=== PATIENT | male | born 1950 | race Hispanic/Latino ===

== ENCOUNTER 2018-09-19 13:20 | Observation (INO) | payer BC ==
[~2018-09-19] VITALS: Ht 167.6 cm; Wt 77.6 kg
[~2018-09-19 13:20] MED LIST: AUGMENTIN 875-1 EACH PO; AZITHROMYCIN250 MG PO; LISINOPRIL-HCT1 EACH PO; TAMIFLU75 MG PO
--- OUTSIDE RECORDS SUMMARY | 2018-09-19 13:22 | XMS REPORT ---
Author Author [facility] Address Unknown Phone Unavailable Care Team Providers Care Manager Exchange Name Role Phone MIKE TERESA Unavailable Unavailable Problems This patient has no known problems. Allergies, Adverse Reactions, Alerts This patient has no known allergies or adverse reactions. Medications This patient has no known medications. Results Test Description Test Time Test Comments Text Results Atomic Results Result Comments CHEST SINGLE (PORTABLE) [place] [address] Patient Name: ANUSHA MCGREGOR MR #: [id number] : 1950 Age/Sex: 67/M Req #: [id number] Adm Physician: MIKE TERESA MD Ordered by: LIANE MAGANA MD Report #: [id number] Location: [facility] Room/Bed: [facility] Procedure: [id number] DX/CHEST SINGLE (PORTABLE) Exam Date: Exam Time: REPORT STATUS: Signed EXAM: CHEST SINGLE (PORTABLE), AP 1 view DATE: 04/08/2017 5:00 AM Time stamp on exam: 0551 hours INDICATION: Chest pain COMPARISON: AP view of the chest 2017 FINDINGS: LINES/TUBES: None LUNGS: Bilateral vascular congestion and atelectasis. PLEURA: No effusions or pneumothorax. HEART AND MEDIASTINUM: Stable appearance. BONES AND SOFT TISSUES: No acute findings. IMPRESSION: No interval change. Signed by: Dr. Vitaliy Hess M.D. on 04/08/2017 6:42 AM Dictated By: VITALIY HESS MD 1 Transcribed By: NISHI on 04/08/17641 COPY TO: LIANE MAGANA MD CHEST SINGLE (PORTABLE) [place] [address] Patient Name: ANUSHA MCGREGOR MR #: [id number] : 1950 Age/Sex: 67/M Req #: [id number] Adm Physician: Ordered by: RICKEY CARTER SOCK IRONER Report #: [id number] Location: ER Room/Bed: Procedure: [id number] DX/CHEST SINGLE (PORTABLE) Exam Date: Exam Time: REPORT STATUS: Signed PROCEDURE: A single AP view of the chest. COMPARISON: [facility], DX, CHEST 2 VIEWS, 04/06/2017, 12:49. INDICATIONS: SOB, PNEUMONIA FINDINGS: Lines/tubes: None. Lungs: Lungs are well- inflated. Stable minimal bibasilar patchy opacities, likely reflecting atelectasis. No consolidation or pulmonary edema. Pleura: There is no pleural effusion or pneumothorax. Heart and mediastinum: Mild prominence of the cardiac silhouette, which is likely partly due to AP projection. Pulmonary vasculature is normal. Bones: No acute bony abnormality. IMPRESSION: 1. minimal by basilar atelectasis. No consolidation or effusion. Omsel Suarez M.D. Dictated by: Osmel Suarez M.D. on 2017 at 16:24 Electronically approved by: Osmel Suarez M.D. on 2017 at 16:24 Dictated By: OSMEL SUAREZ MD 23 Transcribed By: KLAUDIA on 04/07/171623 COPY TO: RICKEY CARTER NP CHEST 2 VIEWS [place] [address] Patient Name: ANUSHA MCGREGOR MR #: [id number] : 1950 Age/Sex: 66/M Req #: [id number] Adm Physician: Ordered by: MIKE TERESA MD Report #: [id number] Location: [facility] Room/Bed: Procedure: [id number] DX/CHEST 2 VIEWS Exam Date: 04/06/17 Exam Time: 1300 REPORT STATUS: Signed PROCEDURE: Frontal and lateral views of the chest. COMPARISON: None. INDICATIONS: SHORTNESS OF BREATH FINDINGS: Lines/tubes: None. Lungs: No parenchymal mass. Bibasilar airspace opacities. Pleura: There is no pleural effusion or pneumothorax. Heart and mediastinum: The heart and the mediastinum are normal. Atherosclerotic calcifications. Bones: No acute bony abnormality. Degenerative changes of the thoracic spine. IMPRESSION: Bibasilar airspace opacities may represent atelectasis or developing pneumonia. Dictated by: Farheen Chung M.D. on 04/06/2017 at 13:59 Electronically approved by: Farheen Chung M.D. on 04/06/2017 at 13:59 Dictated By: FARHEEN CHUNG MD [id number] Transcribed By: KLAUDIA on 04/06/17 1359 COPY TO: MIKE TERESA MD
[2018-09-19] MEDS ORDERED: MORPHINE SULFATE INJ 4 MG/ML INJ 1ML IV NR (13:39)
[2018-09-19] MEDS ORDERED: ONDANSETRON HCL INJ 2MG/ML 2ML 2 MG/ML VIAL IV NR (14:00)
[2018-09-19 14:04] LABS: BASOPHILS % 0.1 % (0.0-1.0); EOSINOPHILS # (AUTO) 0.3 (0.0-0.4); EOSINOPHILS % 1.9 % (0.0-6.0); HEMATOCRIT 40.7 % (38.2-49.6); HEMOGLOBIN 13.7 g/dL (14.0-18.0); LYMPHOCYTES # (AUTO) 1.9 (1.0-3.2); LYMPHOCYTES % 13.5 % (18.0-39.1); MEAN CORPUSCULAR HEMOGLOBIN 30.2 pg (28-32); MEAN CORPUSCULAR HGB CONC 33.7 g/dL (31-35); MEAN CORPUSCULAR VOLUME 89.6 fL (81-99); MONOCYTES # (AUTO) 0.8 (0.2-0.8); MONOCYTES % 5.9 % (4.4-11.3); NEUTROPHILS # (AUTO) 10.6 (2.1-6.9); NEUTROPHILS % 77.8 % (38.7-80.0); PLATELET COUNT 180 x10e3/uL (140-360); RED BLOOD COUNT 4.54 x10e6/uL (4.3-5.7)
[2018-09-19 14:13] LABS: INR 0.9; PARTIAL THROMBOPLASTIN TIME 25.3 seconds (23.8-35.5); PROTHROMBIN TIME 12.6 seconds (11.9-14.5)
[2018-09-19 14:23] LABS: ALANINE AMINOTRANSFERASE 39 IU/L (0-55); ALBUMIN 3.8 g/dL (3.5-5.0); ALBUMIN/GLOBULIN RATIO 1.2 (0.8-2.0); ALKALINE PHOSPHATASE 67 IU/L (40-150); ANION GAP 12.9 mmol/L (8-16); BLOOD UREA NITROGEN 26 mg/dL (7-26); BUN/CREATININE RATIO 24 (6-25); CALCIUM 10.1 mg/dL (8.4-10.2); CARBON DIOXIDE 21 mmol/L (22-29); CHLORIDE 110 mmol/L (98-107); CREATINE KINASE 350 IU/L (30-200); CREATININE, SERUM 1.09 mg/dL (0.72-1.25); EST GLOMERULAR FILTRATION RATE > 60 ML/MIN (60-); GLUCOSE 147 mg/dL (74-118); POTASSIUM 3.9 mmol/L (3.5-5.1); SODIUM 140 mmol/L (136-145)
--- NOTE | 2018-09-19 14:39 | Diagnostic Imaging Report ---
PELVIS X-RAY - 1 VIEW HISTORY: ^R/O FX ^Y COMPARISON: None available. FINDINGS: Bones: Internal rotation of the right femoral head, cannot exclude fracture. Left femoral head appears intact. Linear lucency within the left superior pelvic ramus concerning for acute fracture. Osseous alignment is within normal limits. Joints: The joint spaces are well-maintained. Soft tissues: The soft tissues appear unremarkable. IMPRESSION: Suboptimal evaluation of the right hip. Recommend right hip x-ray series for further evaluation and exclude fracture. Suspect a nondisplaced fracture of the left superior pubic ramus. Signed by: Dr. Missy Giordano M.D. on 09/19/2018 2:35 PM
--- NOTE | 2018-09-19 14:40 | Diagnostic Imaging Report ---
EXAMINATION: CHEST SINGLE (PORTABLE) INDICATION: ^ERMD ORDER ^Y COMPARISON: Chest radiograph 04/08/2017 FINDINGS: AP view TUBES and LINES: None. LUNGS: Lungs are well inflated. Lungs are clear. There is no evidence of pneumonia or pulmonary edema. PLEURA: No pleural effusion or pneumothorax. HEART AND MEDIASTINUM: The cardiomediastinal silhouette is unremarkable.. BONES AND SOFT TISSUES: No acute osseous lesion. Soft tissues are unremarkable. UPPER ABDOMEN: No free air under the diaphragm. IMPRESSION: No acute thoracic abnormality. Signed by: Dr. Missy Giordano M.D. on 09/19/2018 2:37 PM
[2018-09-19 14:51] LABS: CLARITY,URINE CLEAR (CLEAR); COLOR,URINE YELLOW (YELLOW)
[2018-09-19 14:52] LABS: BILIRUBIN,URINE NEGATIVE (NEGATIVE); KETONES,URINE TRACE (NEGATIVE); LEUKOCYTE ESTERASE ,URINE NEGATIVE (NEGATIVE); NITRITE,URINE NEGATIVE (NEGATIVE); PROTEIN,URINE DIPSTICK 1+ (NEGATIVE); URINE UROBILINOGEN 0.2 mg/dL (0.2 - 1)
[2018-09-19 14:55] LABS: EPITHELIAL CELLS,URINE FEW /LPF
[2018-09-19 14:56] LABS: WBC,URINE (MAN) 21-50 /HPF (0-5)
[2018-09-19] MEDS ORDERED: MORPHINE SULFATE 2 MG/ML SYR 1ML IV PRN (16:00)
[2018-09-19] MEDS ORDERED: HYDROMORPHONE 1MG/1ML INJ IV PRN (16:00)
[2018-09-19] MEDS ORDERED: KETOROLAC TROMETHAMINE 30 MG/ML VIAL IV PRN (16:00)
[2018-09-19] MEDS ORDERED: FENTANYL CITRATE/PF 100MCG/2 ML INJ IV ONE (16:00)
--- NOTE | 2018-09-19 16:18 | Diagnostic Imaging Report ---
EXAM: CT Chest abdomen and pelvis WITH contrast 09/19/2018 1:39 PM INDICATION: ^r/o fx ^[id number] ^1435 ^Y COMPARISON: Chest radiograph 09/19/2018, pelvis x-ray finding 09/19/2018 TECHNIQUE: Chest, abdomen and pelvis were scanned utilizing a multidetector helical scanner from the lung apex to the ischial tuberosities after administration of IV contrast. Coronal and sagittal reformations were obtained. Routine protocol was performed. Scan was performed when during portal venous phase. IV CONTRAST: 100 mL of Isovue-370 ORAL CONTRAST: None COMPLICATIONS: None RADIATION DOSE: Total DLP: 787 mGy*cm Estimated effective dose: (DLP x 0.015 x size factor) mSv CTDIvol has been reviewed. It is below the limits set by the Radiation Protocol Committee (RPC). FINDINGS: LINES/ TUBES: None. LUNGS AND AIRWAYS: The lungs are unremarkable. Airways are normal. PLEURA: The pleural spaces are clear. HEART AND MEDIASTINUM: The thyroid gland is normal. Few noncalcified less than 0.5 cm mediastinal lymph nodes are nonspecific. The heart is normal in size. There is no pericardial effusion. Moderate atherosclerotic calcifications of the coronary arteries. The thoracic aorta is normal in caliber and associated with mildly scattered atherosclerotic calcifications in the arch. No acute thoracic aorta pathology. The main pulmonary artery is normal in size measuring 2.6 cm in diameter. No mediastinal hematoma. Small hiatal hernia. HEPATOBILIARY: No focal hepatic lesions. No biliary ductal dilation. GALLBLADDER: No radio-opaque stones or sludge. No wall thickening. SPLEEN: No splenomegaly. PANCREAS: No focal masses or ductal dilatation. ADRENALS: No adrenal nodules KIDNEYS/URETERS: Kidneys enhance symmetrically. No hydronephrosis. No cystic or solid mass lesions. No stones. GI TRACT: No abnormal distention, wall thickening, or evidence of bowel obstruction. Appendix is not visualized. PELVIC ORGANS/BLADDER: Unremarkable. LYMPH NODES: No lymphadenopathy. VESSELS: Unremarkable. PERITONEUM / RETROPERITONEUM: No free air or fluid. BONES: Acute mildly displaced fracture of the left transverse process of L5 and left side of S1 on series 2, images 79 and 82. Linear lucency within the superior pelvic ramus on the left corresponding to the abnormality seen on x-ray and suggestive of acute nondisplaced fracture. There is no significant soft tissue swelling surrounding the fractures. There are no fractures in the hip, specifically in the right femoral neck. Degenerative changes of both hips. Mild multilevel degenerative changes of the thoracic and lumbar spine. SOFT TISSUES: Unremarkable. IMPRESSION: 1. Fractures involving the left transverse process of L5, left side of S1, and superior pubic ramus are likely acute thought not surrounding soft tissue swelling. - No fracture seen in the remaining skeleton of the chest, abdomen and pelvis. Specifically, no fracture of the right femoral neck. 2. Otherwise, no acute posttraumatic abnormality within the chest, abdomen, and pelvis. Signed by: Dr. Missy Giordano M.D. on 09/19/2018 4:14 PM
--- NOTE | 2018-09-19 16:28 | Diagnostic Imaging Report ---
LEFT SHOULDER X-RAY - 2 VIEWS HISTORY: ^r/o fx ^[id number] ^[id number] COMPARISON: None available. FINDINGS: Bones: No acute displaced fracture. Osseous alignment is within normal limits. Joints: The joint spaces are well-maintained. Soft tissues: The soft tissues appear unremarkable. IMPRESSION: No acute radiographic abnormality. Signed by: Dr. Missy Giordano M.D. on 09/19/2018 4:25 PM
--- NOTE | 2018-09-19 16:36 | Diagnostic Imaging Report ---
CT BRAIN WO HISTORY: Trauma COMPARISON: None. TECHNIQUE: Noncontrast axial scans were obtained from skull base to the vertex. Coronal and sagittal reconstructions obtained from the axial data. One or more of the following dose reduction techniques were used: Automated exposure control, adjustment of the mA and/or kV according to patient size, and/or utilization of iterative reconstruction technique. DISCUSSION: Scalp/Skull: Unremarkable. Brain sulci: Appropriate for patient's age. Ventricles: Normal in size and configuration. No hydrocephalus. Extra-axial spaces: No masses or fluid collections. Parenchyma: Mild carotid siphon calcifications. No mass, hemorrhage, or large vascular territory acute infarct. Dural sinuses: No abnormal densities. Sellar/Suprasellar region: Intact. Skull base: Intact. Incidental findings: Mild ethmoid air cell mucosal thickening. IMPRESSION: No acute intracranial abnormalities. Signed by: Dr. Deepak Cuello M.D. on 09/19/2018 4:33 PM
--- NOTE | 2018-09-19 16:42 | Diagnostic Imaging Report ---
CT CERVICAL SPINE WO HISTORY: Trauma COMPARISON: None. TECHNIQUE: CT of the cervical spine without contrast. Sagittal and coronal reformations were created. One or more of the following dose reduction techniques were used: Automated exposure control, adjustment of the mA and/or kV according to patient size, and/or utilization of iterative reconstruction technique. FINDINGS: Cervical lordosis is preserved. There is no scoliosis or subluxation. There is a mildly displaced fracture of the right C7 transverse process. No additional fractures, compression deformity, or destructive osseous lesions are seen. The craniocervical junction is intact. No gross spinal canal masses are seen. The paravertebral and paraspinal soft tissues are unremarkable. There is mild to moderate spondylosis at C5-C6. There is prominent facet arthrosis on the left at C4-C5. Mild atlantoaxial arthrosis is present as well. Mild bilateral carotid bulb calcifications are present. IMPRESSION: 1. Mildly displaced fracture of the right C7 transverse process. 2. No other acute osseous abnormalities. 3. Mild to moderate C5-C6 spondylosis. Signed by: Dr. Deepak Cuello M.D. on 09/19/2018 4:38 PM
[2018-09-19] MEDS ORDERED: SODIUM CHLORIDE 0.9% 50ML 50 ML ONE (17:00)
[2018-09-19] MEDS ORDERED: IOPAMIDOL 370 MG/ML 200 ML INFUS..BTL INJ ONE (17:01)
--- NOTE | 2018-09-19 17:11 | NUR ---
Awaiting confirmation for admission at this time. ER physician to speak to neuro surgery in regards to admission or transfer.
--- NOTE | 2018-09-19 17:57 | NUR ---
Per juana Schumacher to admit patient to this facility at this time.
--- NOTE | 2018-09-19 18:41 | NUR ---
Patient taken to room 105 and bedside report given to CHELE Peter. Addendum: 09/19/18 at 1841 by ROLDAN Taken to room 105 as ordered by Charissa Security Control Assessor.
--- NOTE | 2018-09-19 18:42 | NUR ---
RECEIVED REPORT FROM RENETTA ELAINE AT BEDSIDE. PT IS LAYING FLAT IN BED WITH COLLAR SECURED TO NECK. PT V/S STABLE LEFT AC 20 G PATENT AND DRY WILL MONITOR PT CLOSELY AT THIS TIME UNTIL SHIFT CHANGE CALLED MD GOLDEN OFFICE AGAIN LEFT VOICEMAIL TO NOTIFY OF CX
[2018-09-19 18:45] VITALS: BP 144/66
--- NOTE | 2018-09-19 18:53 | NUR ---
REPORT GIVEN TO UPCOMING NURSE AT THIS TIME
--- NOTE | 2018-09-19 19:15 | NUR ---
Admission assessment done.no resp.distress.left hip pain voiced 11/10.oriented to the unit.family members at bed side.iv right ac #20 g is patent.tele #[address]c collar is in place.abrasions noted to left hip and left side of head. ordered MRI spine for tomorrow.provided snacks .bed locked and in lowest position.phone and call light within reach.instructed to call for assistance as needed.
[2018-09-19 19:52] VITALS: BP 144/66
[2018-09-19] MEDS: ONDANSETRON HCL INJ 2MG/ML 2ML 2 MG/ML VIAL IV PRN (20:33)
[2018-09-19] MEDS: MORPHINE SULFATE INJ 4 MG/ML INJ 1ML IV PRN (20:33)
[2018-09-19 20:40] VITALS: BP 144/66
[2018-09-19] MEDS ORDERED: METFORMIN HCL500 MG PO (22:24)
--- NOTE | 2018-09-19 23:45 | NUR ---
As per the order blood mendel and sent to the lab.pt tolerated well.
[2018-09-20] VITALS (7 sets, daily range): BP systolic 101–167; BP diastolic 57–76
[2018-09-20] MEDS: HYDROCODONE/APAP 7.5MG-325MG 1 EA TAB PO PRN ×2 (01:20→14:40)
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
--- NOTE | 2018-09-20 01:41 | NUR ---
No chest pain.lyeing comfortably in the bed.
[2018-09-20] MEDS: ONDANSETRON HCL INJ 2MG/ML 2ML 2 MG/ML VIAL IV PRN ×3 (05:29→20:47)
[2018-09-20] MEDS: MORPHINE SULFATE INJ 4 MG/ML INJ 1ML IV PRN ×2 (05:30→10:09)
--- NOTE | 2018-09-20 06:00 | NUR ---
Paged to inform the consultation.
[2018-09-20 06:03] LABS: BASOPHILS % 0.3 % (0.0-1.0); EOSINOPHILS # (AUTO) 0.1 (0.0-0.4); EOSINOPHILS % 0.4 % (0.0-6.0); HEMATOCRIT 38.1 % (38.2-49.6); HEMOGLOBIN 12.6 g/dL (14.0-18.0); LYMPHOCYTES # (AUTO) 2.3 (1.0-3.2); LYMPHOCYTES % 19.6 % (18.0-39.1); MEAN CORPUSCULAR HEMOGLOBIN 30.1 pg (28-32); MEAN CORPUSCULAR HGB CONC 33.1 g/dL (31-35); MEAN CORPUSCULAR VOLUME 90.9 fL (81-99); MONOCYTES # (AUTO) 1.3 (0.2-0.8); MONOCYTES % 10.9 % (4.4-11.3); NEUTROPHILS % 68.5 % (38.7-80.0); PLATELET COUNT 161 x10e3/uL (140-360); RED BLOOD COUNT 4.19 x10e6/uL (4.3-5.7); RED CELL DISTRIBUTION WIDTH 13.2 % (11.7-14.4)
[2018-09-20 06:19] LABS: CREATINE KINASE MB 4.5 ng/mL (0-5.0)
[2018-09-20 06:31] LABS: ANION GAP 11.9 mmol/L (8-16); BLOOD UREA NITROGEN 25 mg/dL (7-26); BUN/CREATININE RATIO 24 (6-25); CALCIUM 8.9 mg/dL (8.4-10.2); CARBON DIOXIDE 23 mmol/L (22-29); CHLORIDE 105 mmol/L (98-107); CREATININE, SERUM 1.04 mg/dL (0.72-1.25); EST GLOMERULAR FILTRATION RATE > 60 ML/MIN (60-); GLUCOSE 119 mg/dL (74-118); POTASSIUM 3.9 mmol/L (3.5-5.1); SODIUM 136 mmol/L (136-145)
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
[2018-09-20] MEDS ORDERED: ACETAMINOPHEN 325 MG TAB PO PRN (07:00)
[2018-09-20] MEDS ORDERED: HYDRALAZINE HCL 20 MG/ML VIAL IV PRN (07:00)
[2018-09-20] MEDS ORDERED: CEFTRIAXONE SOD 1 GM/NS 50 ML 50 ML IV SCH (07:30)
[2018-09-20] MEDS ORDERED: DEXTROSE 50% SYRINGE 50 ML IV PRN (07:45)
[2018-09-20] MEDS ORDERED: SODIUM CHLORIDE 0.9% 250ML 250 ML ONE (09:28)
[2018-09-20] MEDS: LISINOPRIL 20 MG TAB PO SCH (09:30)
[2018-09-20] MEDS: FAMOTIDINE 20 MG TAB PO SCH ×2 (09:30→17:20)
[2018-09-20] MEDS: HYDROCHLOROTHIAZIDE 25 MG TAB PO SCH (09:30)
--- NOTE | 2018-09-20 10:07 | NUR ---
MEDICATED PER MD ORDER FOR PAIN 11/10, EDUCATED TO NOT GET OOB WITHOUT CALLING FOR ASSISTANCE, VERBALIZED UNDERSTANDING, CALL LIGHT WITHIN REACH
[2018-09-20] MEDS: INSULIN LISPRO 100 UNIT/1 ML 3ML VIAL SQ SCH ×3 (11:30→20:47)
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
--- NOTE | 2018-09-20 14:35 | NUR ---
PT TOLERATING PO AT THIS TIME, MEDICATED FOR 6/10 LEFT HIP/LEG PAIN, EDUCATED TO NOT GET OOB WITHOUT CALLING FOR ASSISTANCE, PT VERBALIZED UNDERSTANDING, CALL LIGHT WITHIN REACH, FAMILY AT SIDE
[2018-09-20] MEDS ORDERED: HYDROMORPHONE 2MG/ML 2 MG/ML ML IV PRN (16:30)
--- NOTE | 2018-09-20 16:30 | NUR ---
MD MONROY INTO SEE PT, DISCUSSED POC
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
--- NOTE | 2018-09-20 16:53 | NUR ---
PT SITTING ON SIDE OF BED, WITH WALKER, PT STOOD AT SIDE OF BED, EDUCATED TO NOT GET OOB OR AMBULATE WITHOUT CALLING FOR ASSISTANCE, PT AND FAMILY VERBALIZED UNDERSTANDING, CALL LIGHT WITHIN REACH
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
--- NOTE | 2018-09-20 19:00 | NUR ---
RECEIVED REPORT FROM DAY NURSE. PATIENT IS RESTING COMFORTABLY IN BED. FAMILY IS BY THE BEDSIDE. BED IS IN LOWEST POSITION AND CALL HOLLIDAY IS WITHIN REACH. WILL CONTINUE TO MONITOR PATIENT.
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
[2018-09-21] VITALS: BP 98/55
[2018-09-21 03:58] LABS: BASOPHILS % 0.2 % (0.0-1.0); EOSINOPHILS # (AUTO) 0.1 (0.0-0.4); HEMATOCRIT 39.5 % (38.2-49.6); HEMOGLOBIN 12.8 g/dL (14.0-18.0); LYMPHOCYTES # (AUTO) 2.3 (1.0-3.2); LYMPHOCYTES % 20.5 % (18.0-39.1); MEAN CORPUSCULAR HEMOGLOBIN 29.6 pg (28-32); MEAN CORPUSCULAR HGB CONC 32.4 g/dL (31-35); MEAN CORPUSCULAR VOLUME 91.4 fL (81-99); MONOCYTES # (AUTO) 1.1 (0.2-0.8); NEUTROPHILS # (AUTO) 7.5 (2.1-6.9); NEUTROPHILS % 67.8 % (38.7-80.0); PLATELET COUNT 156 x10e3/uL (140-360); RED BLOOD COUNT 4.32 x10e6/uL (4.3-5.7); RED CELL DISTRIBUTION WIDTH 13.2 % (11.7-14.4)
[2018-09-21 04:00] VITALS: BP 109/51
[2018-09-21 04:10] LABS: BLOOD UREA NITROGEN 26 mg/dL (7-26); BUN/CREATININE RATIO 24 (6-25); CALCIUM 8.9 mg/dL (8.4-10.2); CARBON DIOXIDE 24 mmol/L (22-29); CHLORIDE 100 mmol/L (98-107); CREATININE, SERUM 1.08 mg/dL (0.72-1.25); EST GLOMERULAR FILTRATION RATE > 60 ML/MIN (60-); GLUCOSE 114 mg/dL (74-118); MAGNESIUM 2.1 MG/DL (1.3-2.1); SODIUM 132 mmol/L (136-145)
[2018-09-21 04:17] LABS: B-TYPE NATRIURETIC PEPTIDE2 10.3 pg/mL (0-100)
[2018-09-21 04:33] LABS: THYROID STIMULATING HORMONE 0.681 uIU/mL (0.350-4.940)
[2018-09-21] MEDS ORDERED: SODIUM CHLORIDE 0.9% 250ML 250 ML ONE (05:08)
[2018-09-21] MEDS ORDERED: CEFTRIAXONE SOD 1 GM/NS 50 ML 50 ML IV SCH (06:30)
--- NOTE | 2018-09-21 07:10 | NUR ---
PT ALERT RESP EVEN AND UNLABORED NO C/O PAIN WHEN ASKED PT ABLE TO MAKE NEEDS KNOWN, CALL LIGHT IN REACH. PT HAD FAMILY MEMBERS AT BEDSIDE.
--- NOTE | 2018-09-21 07:20 | NUR ---
REPORT GIVEN TO DAY NURSE. PATIENT IS RESTING IN BED. BED IS IN LOWEST POSITION AND CALL HOLLIDAY IS WITH REACH.
[2018-09-21] MEDS ORDERED: DOCUSATE SODIU100 MG PO (07:24)
[2018-09-21] MEDS ORDERED: TYLENOL WITH C1 EACH PO (07:24)
[2018-09-21 07:26] VITALS: BP 107/56
[2018-09-21] MEDS: INSULIN LISPRO 100 UNIT/1 ML 3ML VIAL SQ SCH ×2 (07:30→11:30)
[2018-09-21] MEDS: FAMOTIDINE 20 MG TAB PO SCH (07:30)
[2018-09-21 07:35] VITALS: BP 107/56
[2018-09-21] MEDS: HYDROCHLOROTHIAZIDE 25 MG TAB PO SCH (09:05)
[2018-09-21] MEDS: LISINOPRIL 20 MG TAB PO SCH (09:05)
[2018-09-21 11:25] VITALS: BP 104/55
--- NOTE | 2018-09-21 13:02 | NUR ---
CM SPOKE TO PATIENT AND PATIENT DAUGHTER MAL AT BEDSIDE REGARDING HOME HEALTH. PATIENT AND PATIENT FAMILY VERBALLY AGREED TO HOME HEALTH WITH PT PATRICIAAL. PATIENT GIVEN CHOICES. PATIENT AND PATIENT FAMILY CHOOSES [facility] THROUGH INSURANCE. CLINICAL SENT TO [facility]. PENDING ACCEPTANCE. [facility] (P) [phone] (F) [phone] LIAISON: GERA
--- NOTE | 2018-09-21 13:04 | NUR ---
DISCHARGE DISPOSITION: PATIENT WILL RETURN HOME WITH THE FOLLOWING HOME HEALTH SERVICE PROVIDER: [facility] (P) [phone] (F) [phone] LIAISON: GERA CM CONTACT INFORMATION GIVEN TO PATIENT AND PATIENT DAUGHTER IF HOME EHALTH DOES NOT CONTACT THEM WITHIN 48 HOURS POST DISCHARGE.
--- NOTE | 2018-09-21 13:50 | NUR ---
PT DISCHARGED HOME , PRESCRIPTIONS GIVEN, MEDICATIONS WAS EXPLAINED TO PT BY NURSE AND PHARMACIST, BRANDT, PT AND FAMILY MEMBERS VERBALIZED UNDERSTANDING, PT IV SITE REMOVED AND INTACT. NO SWELLING NO REDNESS TO SITE.
[2018-09-21] MEDS ORDERED: ONDANSETRON HCL 4 MG ORAL DISINTEGRATING TAB PO PRN (15:00)
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
== END 2018-09-21 15:05 | disposition home health service (06) ==
LOC: ER 13:20 → ERHOLD 16:20 → MED/SURG 18:42
PROVIDERS: ADMIT Internal Medicine; ATTEND Internal Medicine
DX: S32.058A Other fracture of fifth lumbar vertebra, initial encounter for closed fracture (principal); M54.2 Cervicalgia; E11.9 Type 2 diabetes mellitus without complications; I10 Essential (primary) hypertension; V86.09XA Driver of other special all-terrain or other off-road motor vehicle injured in traffic accident, initial encounter; Y93.89 Activity, other specified; S32.592A Other specified fracture of left pubis, initial encounter for closed fracture; Z83.3 Family history of diabetes mellitus; D72.829 Elevated white blood cell count, unspecified; M47.812 Spondylosis without myelopathy or radiculopathy, cervical region; Z79.84 Long term (current) use of oral hypoglycemic drugs
CPT/HCPCS: 36415 ×3; 70450; 71045; 71260; 72125; 72170; 73030; 73562; 74177; 80048 ×2; 80053; 81001; 82550 ×2; 82553 ×2; 82948 ×3; 83036; 83735; 83880; 84439; 84443; 84484 ×2; 85025 ×3; 85610; 85730; 87040; 87086; 93005; 93306; 97116; 97162; 99284; G0378 ×3; J0696 ×2; J1170; J2270 ×2; J2405 ×2; J7050 ×2; Q9967